=== PATIENT | female | born 1985 | race African-American/Black ===

== ENCOUNTER 2023-03-06 09:33 | Emergency (ER) | payer MEDICAID, SELFPAY ==
[2023-03-06] MEDS ORDERED: Tetracaine 0.5% PF 4 ML BOT ONE (10:16)
[2023-03-06] MEDS ORDERED: Fluorescein Opthalmic Strip ONE (10:16)
== END 2023-03-06 10:53 | disposition home or self-care (01) ==
LOC: CSHERS 09:33
DX: S05.01XA Injury of conjunctiva and corneal abrasion without foreign body, right eye, initial encounter (principal)
CPT/HCPCS: 99283